=== PATIENT | female | born 1955 | race Caucasian/White ===

== ENCOUNTER 2017-07-01 06:05 | Inpatient (IN) | payer BC, SELFPAY ==
[2017-07-01] VITALS (18 sets, daily range): BP systolic 117–144; BP diastolic 61–103; PULSE 61–76; RESP 10–31; TEMP 36.6–37; O2SAT 93–97; BMI 35.2; BMI 36.2; BMI 36.3
--- NOTE | 2017-07-01 06:09 | EKG12_ITS ---
Test Reason : SOB Blood Pressure : / mmHG Vent. Rate : 073 BPM Atrial Rate : 073 BPM P-R Int : 128 ms QRS Dur : 076 ms QT Int : 384 ms P-R-T Axes : 021 -01 050 degrees QTc Int : 423 ms Sinus rhythm with Premature supraventricular complexes Low voltage QRS Nonspecific ST abnormality Poor R wave progression Abnormal ECG Confirmed by RONALD MÁRQUEZ, CARISSA ([id number]), technical editor ARABELLA MCNALLY ([id number] on 07/02/2017 2:24:57 PM Referred By: PADMINI Confirmed By:CARISSA CARDENAS MD
--- NOTE | 2017-07-01 06:09 | RAD_ITS ---
STUDY: X-RAY CHEST REASON FOR EXAM: Female, 61 years old. Shortness of breath TECHNIQUE: Single AP portable view of the chest. COMPARISON: None. FINDINGS: EKG leads are in place There is pulmonary vascular congestion and interstitial edema There is no demonstrated pleural abnormality. There is moderate cardiomegaly Normal mediastinum and noah. Normal visualized pulmonary arteries. There is atherosclerotic calcification of the aortic arch . Normal visualized thoracic spine. Normal visualized ribs, clavicles, and shoulders. There is no demonstrated abnormality of the visualized soft tissue structures of the upper abdomen. RAD/Chest 1 View (Portable) IMPRESSION: Moderate cardiomegaly with pulmonary vascular congestion and interstitial edema consistent with early CHF Electronically Signed: Sen Reagan MD, FACR at 7:47 EST , Service support ,
--- NOTE | 2017-07-01 06:12 | ED.VISSUMM ---
- ER Visit Summary Date of Service: 07/01/17 Chief Complaint: Shortness of breath History of Present Illness: The patient is a 61 F with gradually worsening shortness of breath over the last several days, worse with exertion and much worse with lying supine. Severe now, hence coming to emergency department. Associated with chest tightness. It is nonpleuritic. No recent leg pain or swelling. No palpitations, nausea, vomiting, cough, fever, or other recent illness. Never had this before. No known history of lung or heart problems. Physical Examination: Blood pressure 144/103, heart rate 76, respirations 31, afebrile. Pulse ox 96% on 2L NC (94% on room air). Mild respiratory distress, speaking in 3-5 word sentences. Appears uncomfortable. Heart is regular without tachycardia. Lungs are diminished especially at the bases where there are a few rhonchi. No pedal edema or calf tenderness. No definite JVD. Test Results: EKG shows sinus rhythm with a PAC, at 73. Normal axis, no acute ischemic abnormalities. Diffuse relatively low voltage. Stat portable chest x-ray on my interpretation shows cephalization and signs of pulmonary congestion. Labs show a nonspecific leukocytosis at 13, renal function and troponin are within normal limits, TSH is normal. Emergency Department Course and Treatment: After initial evaluation, patient treated empirically with a duo nebulizer treatment and a single sublingual nitroglycerin. Neither one helped. Still having chest tightness and is breathing hard, but able to converse. Chest x-ray appears to show ulnar congestion. Her blood pressure is 130/79. Since neither treatment helped, patient was placed on BiPAP. I attempted to obtain an ABG, but pt is refusing it. Therefore,venous pH was obtained, which is 7.43; BNP is still pending. Discussed w/ Dr. Puente, he will evaluate her on PCU. Treatment Plan: Admit Disposition: Admit Impression: Chest pain, unspecified Acute respiratory failure This note was generated with [employer] dictation software. It may contain incorrect words, spelling, and punctuation that were not noted in review of the chart prior to signing ED Disposition - Plan for ED Patient: Disposition: Acute Care Hospital [facility] Chief Complaint: Shortness of Breath Referrals: [facility] Doctor,Out of [Primary Care Provider] -
--- NOTE | 2017-07-01 06:15 | ED.DCSUM_ITS ---
- ER Visit Summary Date of Service: 07/01/17 Chief Complaint: Shortness of breath History of Present Illness: The patient is a 61 F with gradually worsening shortness of breath over the last several days, worse with exertion and much worse with lying supine. Severe now, hence coming to emergency department. Associated with chest tightness. It is nonpleuritic. No recent leg pain or swelling. No palpitations, nausea, vomiting, cough, fever, or other recent illness. Never had this before. No known history of lung or heart problems. Physical Examination: Blood pressure 144/103, heart rate 76, respirations 31, afebrile. Pulse ox 96% on 2L NC (94% on room air). Mild respiratory distress, speaking in 3-5 word sentences. Appears uncomfortable. Heart is regular without tachycardia. Lungs are diminished especially at the bases where there are a few rhonchi. No pedal edema or calf tenderness. No definite JVD. Test Results: EKG shows sinus rhythm with a PAC, at 73. Normal axis, no acute ischemic abnormalities. Diffuse relatively low voltage. Stat portable chest x- ray on my interpretation shows cephalization and signs of pulmonary congestion. Labs show a nonspecific leukocytosis at 13, renal function and troponin are within normal limits, TSH is normal. Emergency Department Course and Treatment: After initial evaluation, patient treated empirically with a duo nebulizer treatment and a single sublingual nitroglycerin. Neither one helped. Still having chest tightness and is breathing hard, but able to converse. Chest x-ray appears to show ulnar congestion. Her blood pressure is 130/79. Since neither treatment helped, patient was placed on BiPAP. I attempted to obtain an ABG, but pt is refusing it. Therefore,venous pH was obtained, which is 7.43; BNP is still pending. Discussed w/ Dr. Puente, he will evaluate her on PCU. Treatment Plan: Admit Disposition: Admit Impression: Chest pain, unspecified Acute respiratory failure This note was generated with [employer] dictation software. It may contain incorrect words, spelling, and punctuation that were not noted in review of the chart prior to signing ED Disposition - Plan for ED Patient: Disposition: Acute Care Hospital [facility] Chief Complaint: Shortness of Breath Referrals: [facility] Doctor,Out of [Primary Care Provider] -
[2017-07-01] MEDS: Ipratropium/Albuterol Sulfate 3 ML AMPUL.NEB INHALATION (06:17)
[2017-07-01 06:23] LABS: Absolute Lymphocyte Count 2.61 X10^3/ul (0.83-4.51); Absolute Neutrophil Count 9.2 X10^3/uL (2.0-7.7); Basophil# 0.06 X10^3/uL; Basophil% 0.5 % (0-1); Eosinophil# 0.41 X10^3/uL; Eosinophils% 3.2 % (0-5); Hematocrit 39.1 % (37-47); Hemoglobin 12.5 g/dl (12.0-15.0); Lymphocyte # 2.61 X10^3/ul (4.0); Lymphocyte % 20.1 % (19-41); Mean Corpuscular Hgb 28.9 pg (27.0-32.0); Mean Corpuscular Volume 90.3 fL (81-99); Mean Platelet Vol. 9.7 fl (6.2-12.0); Monocyte# 0.66 X10^3/uL; Monocyte% 5.1 % (0-10); Neutrophil # 9.24 X10^3/uL (2.7-7.7); Neutrophil % 70.9 % (47-70); POSITIVE COUNT NO; POSITIVE DIFFERENTIAL NO; POSITIVE MORPHOLOGY NO; Platelet Count 282 K/mm3 (150-450); RBC Distribution Width CV 14.2 % (11.6-14.6); RBC Distribution Width SD 46.8 fl (35.1-43.9); Red Blood Count 4.33 M/mm3 (4.2-5.4)
[2017-07-01 06:43] LABS: Anion Gap 7 (5-15); BUN 10 mg/dL (7-18); BUN/Creat Ratio 12.6 RATIO (10-20); Calcium,Total 8.7 mg/dL (8.5-10.1); Chloride 107 mmol/L (98-107); Creatinine, Serum 0.79 mg/dL (0.55-1.02); EST Glomerular Filtration Rate 78 mL/min (>60); Est Glom Filt Rate - Afr Amer 94 mL/min (>60); Estimated Creatinine Clearance 70.88 ml/min; Glucose 107 mg/dL (74-106); Potassium 4.6 mmol/L (3.5-5.1); Sodium Level 140 mmol/L (136-145)
[2017-07-01 07:26] LABS: Blood Gas Specimen Type VEN; Time Given 710; VBG BASE EXCESS 2 mmol/L (-1.0-3.5); VBG Bicarbonate 26 mmol/L (22-26); VBG Oxygen Content 28 mmol/L (23-33); VBG PO2 34 mmHg (25-40); VBG SO2 68 % (50-70); VBG pCO2 39.8 mmHg (41-51); VBG pH 7.43 (7.32-7.42)
[2017-07-01 08:03] LABS: BNP,B-Type NATRIURETIC PEPTIDE 512.6 pg/mL (0-100)
--- NOTE | 2017-07-01 09:09 | ECHOD_ITS ---
Reason For Study: HTN Procedure This was a 2D Doppler, Color Flow transthoracic echocardiogram. Exam performed portable in patient room. Left Ventricle Normal size and thickness. The estimated ejection fraction is 65 %. Stage 2 diastolic dysfunction. No regional wall motion abnormalities noted. Right Ventricle Moderately dilated right ventricle. Normal systolic function. Atria Normal left atrium. Normal right atrium. Normal atrial septum. Mitral Valve Mild diffuse mitral valve thickening. Mild mitral annular calcification extending into the posterior leaflet. Mild-Moderate (1-2+) eccentric mitral valve insufficiency. Tricuspid Valve Normal tricuspid valve. Trivial tricuspid valve insufficiency. Right ventricular systolic pressure estimated to be 28 mmHg. Aortic Valve Normal aortic valve. Trisinus/trileaflet aortic valve. Pulmonic Valve The pulmonic valve is not well visualized. Great Vessels Normal aortic root. Normal arch. Normal inferior vena cava. Inferior vena cava collapse with sniff. Pericardium/Pleural No pericardial effusion. Medication Diluted definity 3ml given slow IV push to enhance endocardial definition. MMode/2D Measurements & Calculations RVDd: 3.3 cm Ao root diam: 3.3 cm LAV(MOD-bp): 61.2 ml LA dimension: 4.0 cm LAV(MOD-bp) Indexed: 28.5 ml/m2 LAV(MOD-sp2): 70.2 ml LAV(MOD-sp4): 50.6 ml LA A4 area: 18.1 cm2 RA A4 area: 15.4 cm2 Doppler Measurements & Calculations MV E max bulmaro: 104.6 cm/sec Lat Peak E' Bulmaro: 12.6 cm/sec Med Peak E' Bulmaro: 8.2 cm/sec MV A max bulmaro: 40.5 cm/sec E/E' lat: 8.3 E/E' med: 12.8 MV E/A: 2.6 Ao V2 max: 141.3 cm/sec LV V1 max: 112.9 cm/sec PA V2 max: 78.1 cm/sec Ao max P.0 mmHg LV V1 max P.1 mmHg TR max bulmaro: 236.9 cm/sec TR max P.7 mmHg Interpretation Summary The estimated ejection fraction is 65 %. Stage 2 diastolic dysfunction. Moderately dilated right ventricle. Mild-Moderate (1-2+) eccentric mitral valve insufficiency. MR may be underestimated due to poor echo windows. Right ventricular systolic pressure estimated to be 28 mmHg. The study was technically difficult. There is no comparison study available. Contrast injection was performed. Ordering Physician: Mackenzie Puente Referring Physician: OTD Performed By: Anaid Gutierrez, JALYN, RVT
--- NOTE | 2017-07-01 09:15 | PCM.HP.STD ---
Problem List (1) Obstructive sleep apnea Status: Chronic (2) Depression Status: Chronic (3) Hypertension Status: Chronic History of Present Illness Date of Admission: 07/01/17 Chief Complaint: Shortness of breath. The patient is a 61 year old F with past medical history as mentioned above presented to the emergency room because of shortness of breath. Her symptoms started in the last 2-3 days with shortness of breath at rest, constant, associated with orthopnea and chest pressure, aggravated by activity and minimally relieved with rest. Complaint of chest pain, described as pressure-like pain, squeezing type, not radiating, started 1 day after the shortness of breath. She denied sharp anterior chest pain. She denied associated cough or sputum production. Denied fever or chills. In the emergency room, patient was dyspneic and tachypneic. She was afebrile, blood pressure 100 stable, pulse ox was 97% on 2 L. Her routine blood work was remarkable for leukocytosis, otherwise normal. First troponin is negative. BNP was elevated at 512. TSH was normal. Venous blood gas revealed pH of 7.43, PCO2 of 39 and PO2 of 68. EKG revealed normal sinus rhythm with occasional PVCs, low voltage QRS and no acute ischemic changes. Chest x-ray showed bilateral basilar pulmonary vascular congestion consistent with CHF. She is being admitted for shortness of breath with hypoxia with high suspicion of acute just of heart failure for evaluation. Past Medical History Past Medical History (Chronic Problems): Chronic Problems Obstructive sleep apnea (Chronic) Depression (Chronic) Hypertension (Chronic) Allergies aspirin [From Percodan] Allergy (Verified 07/01/17 06:12) Anaphylaxis codeine Allergy (Verified 07/01/17 06:12) Other HEADACHE oxycodone [From Percodan] Allergy (Verified 07/01/17 06:12) Anaphylaxis Home Medications: Ambulatory Orders Medication Instructions Recorded Atenolol [Tenormin (beta Iris)] 25 mg PO DAILY 07/01/17 Bupropion HCl [Wellbutrin Xl] 150 mg PO DAILY 07/01/17 Hydrochlorothiazide [Hctz] 10 mg PO DAILY 07/01/17 Venlafaxine HCl [Effexor] 75 mg PO BID 07/01/17 Surgical History: cholecystectomy, - - Tubal ligation, shoulder repair. Psychiatric History: No pertinent psych hx [employer] History: No pertinent [employer] history Lives: Spouse/ Significant Other Smoking Status: Current every day smoker Alcohol: None Drugs: None - *Family History Maternal History Items: No pertinent history Paternal History Items: No pertinent history Review of Systems Constitutional: Denies: Anorexia, Chills, Fever, Weakness Eyes: Denies: Blurred vision, Double vision, Drainage, Redness HEENT: Denies: Difficulty Hearing, Ear Pain, Eye Pain, Nasal Congestion, Sore Throat Cardiovascular: Reports: Chest Pressure, Chest Tightness, Heaviness, Orthopnea. Denies: Chest Pain, Edema, Light Headedness, Palpitations, Paroxysmal Noc. Dyspnea, Syncope Respiratory: Reports: Shortness of Breath, Shortness of breath at rest, Shortness of breath upon exertion. Denies: Cough, Pleuritic Pain, Sputum production, Wheezing Gastrointestinal: Denies: Abdominal Pain, Constipation, Diarrhea, Nausea, Vomiting Genitourinary: Denies: Dysuria, Frequency, Hematuria Musculoskeletal: Denies: Arm Pain, Back Pain, Foot Pain Skin: Denies: Dryness, Rash Neurological: Denies: Balance problems, Double vision, Change in Speech, Slurred speech, Confusion, Focal weakness, Incoordination, Numbness Psychiatric: Reports: Depression. Denies: Anxiety Endocrine: Denies: Change in Body Habitus, Polydipsia VTE Information - Inpt Only VTE Present on Admission: No VTE Mechan Device Prophylaxis: None VTE Pharm Prophylaxis ordered?: Yes Patient Problems: Active and Suspected Problems Shortness of breath (Acute) Chest pain (Acute) Pulmonary edema (Acute) - Physical Exam General: Alert, Oriented x3, Cooperative, - - Moderately short of breath. HEENT: Atraumatic, PERRLA, EOMI Oral: Moist Mucosa, No Gingival or Mucosal Lesions/ Ulcerations Neck: Supple, No JVD, Negative Carotid Bruits, Trachea Midline, Thyroid Normal Size and Texture Lungs: No rhonchi, No wheeze, Diminished, Rales, Short of Breath, - - Decreased breath sounds bilateral, bilateral basal crackles. Cardiovascular: Regular rate, Regular Rhythm, Normal S1, Normal S2, No murmurs, PMI Normal Abdomen: Bowel Sounds Present, Soft, Non Tender, Non-Distended, No Hepato-splenomegaly Extremities: No clubbing, No cyanosis, No edema Skin: No rashes, No breakdown Lymphatic: No Cervical, Supraclavicular, or Inguinal Adenopathy Neurological: Cranial nerves II-XII grossly intact, Motor Exam 5/5 strength throughout Psych/Mental Status: Normal Affect, Appropriate, Alert and oriented to time, place, person, mood and affect Vital Signs Temp Pulse Resp BP Pulse Ox 98.4 F 64 18 122/78 H 97 07/01/17 08:30 07/01/17 08:42 07/01/17 08:30 07/01/17 08:45 07/01/17 08:30 Oxygen Flow Rate 2 Oxygen Delivery Method Nasal Cannula Weight: 231 lb 7.766 oz Body Mass Index (BMI) 36.2 Laboratory Tests Past 24 Hrs 07/01/17 07:21 Specimen Type COURTNEY VBG pH 7.43 H VBG pO2 34 VBG O2 Sat (Calc) 68 VBG O2 Content 28 VBG Base Excess 2 POC Mix VBG pCO2 Pt Tmp 39.8 L Blood Gas Notified Whom ED Blood Gas Notified Time 710 Laboratory Tests 07/01/17 07/01/17 07/01/17 Range/Units 07:21 06:10 06:10 WBC (4.4-11.0) K/mm3 RBC (4.2-5.4) M/mm3 Hgb (12.0-15.0) g/dl Hct (37-47) % MCV (81-99) fL MCH (27.0-32.0) pg MCHC (32-36) g/gl RDW (11.6-14.6) % RDW Differential (35.1-43.9) fl Plt Count (150-450) K/mm3 MPV (6.2-12.0) fl Immature Gran % (Auto) (0.0-0.9) % Neut % (Auto) (47-70) % Lymph % (Auto) (19-41) % [place] % (Auto) (0-10) % Eos % (Auto) (0-5) % Baso % (Auto) (0-1) % Absolute Neuts (auto) (2.0-7.7) X10^3/uL Absolute Lymphs (auto) (0.83-4.51) X10^3/ul Total Counted Specimen Type COURTNEY VBG pH 7.43 H (7.32-7.42) VBG pO2 34 (25-40) mmHg VBG O2 Sat (Calc) 68 (50-70) % VBG O2 Content 28 (23-33) mmol/L VBG Base Excess 2 (-1.0-3.5) mmol/L POC Mix VBG pCO2 Pt Tmp 39.8 L (41-51) mmHg Blood Gas Notified Whom ED MD Blood Gas Notified Time 710 Sodium 140 (136-145) mmol/L Potassium 4.6 (3.5-5.1) mmol/L Chloride 107 (98-107) mmol/L Carbon Dioxide 26.0 (21.0-32.0) mmol/L Anion Gap 7 (5-15) BUN 10 (7-18) mg/dL Creatinine 0.79 (0.55-1.02) mg/dL Estim Creat Clear Calc 70.88 ml/min Est GFR (MDRD) Af Amer 94 (>60) mL/min Est GFR (MDRD) Non-Af 78 (>60) mL/min BUN/Creatinine Ratio 12.6 (10-20) RATIO Glucose 107 H (74-106) mg/dL Calcium 8.7 (8.5-10.1) mg/dL Troponin I < 0.02 (<0.06) ng/mL B-Natriuretic Peptide 512.6 H (0-100) pg/mL TSH 3.20 (0.358-3.74) uIU/mL 07/01/17 Range/Units 06:10 WBC 13.0 H (4.4-11.0) K/mm3 RBC 4.33 (4.2-5.4) M/mm3 Hgb 12.5 (12.0-15.0) g/dl Hct 39.1 (37-47) % MCV 90.3 (81-99) fL MCH 28.9 (27.0-32.0) pg MCHC 32.0 (32-36) g/gl RDW 14.2 (11.6-14.6) % RDW Differential 46.8 H (35.1-43.9) fl Plt Count 282 (150-450) K/mm3 MPV 9.7 (6.2-12.0) fl Immature Gran % (Auto) 0.200 (0.0-0.9) % Neut % (Auto) 70.9 H (47-70) % Lymph % (Auto) 20.1 (19-41) % [place] % (Auto) 5.1 (0-10) % Eos % (Auto) 3.2 (0-5) % Baso % (Auto) 0.5 (0-1) % Absolute Neuts (auto) 9.2 H (2.0-7.7) X10^3/uL Absolute Lymphs (auto) 2.61 (0.83-4.51) X10^3/ul Total Counted Not Reportable Specimen Type VBG pH (7.32-7.42) VBG pO2 (25-40) mmHg VBG O2 Sat (Calc) (50-70) % VBG O2 Content (23-33) mmol/L VBG Base Excess (-1.0-3.5) mmol/L POC Mix VBG pCO2 Pt Tmp (41-51) mmHg Blood Gas Notified Whom Blood Gas Notified Time Sodium (136-145) mmol/L Potassium (3.5-5.1) mmol/L Chloride (98-107) mmol/L Carbon Dioxide (21.0-32.0) mmol/L Anion Gap (5-15) BUN (7-18) mg/dL Creatinine (0.55-1.02) mg/dL Estim Creat Clear Calc ml/min Est GFR (MDRD) Af Amer (>60) mL/min Est GFR (MDRD) Non-Af (>60) mL/min BUN/Creatinine Ratio (10-20) RATIO Glucose (74-106) mg/dL Calcium (8.5-10.1) mg/dL Troponin I (<0.06) ng/mL B-Natriuretic Peptide (0-100) pg/mL TSH (0.358-3.74) uIU/mL Clinical Impression(s) from Imaging Studies Chest X-Ray 07/01/17 06:09 IMPRESSION: Moderate cardiomegaly with pulmonary vascular congestion and interstitial edema consistent with early CHF Electronically Signed: Sen Reagan MD, FACR at 7:47 EST , Service support , Assessment/Plan Active and Suspected Problems Shortness of breath (Acute) Chest pain (Acute) Pulmonary edema (Acute) This is a 61 years old female patient presented to the emergency room because of shortness of breath and orthopnea, found to have acute onset congestive heart failure as well as hypoxia. #1 acute new onset congestive heart failure: Based on symptoms, chest x-ray findings, elevated BNP. Patient never had a history of cardiac disease. Differential diagnoses include possible viral myocarditis coronary artery disease. She is a big time smoker, strong family history of CAD. EKG revealed normal sinus rhythm with PVCs, low voltage QRS, no acute ischemic changes. First troponin is negative. BNP is elevated. Plan: Admit to PCU, cardiac monitoring, serial cardiac enzymes, repeat EKG tomorrow morning, 2D echocardiogram, fluid restriction to less than 1500 cc daily, IV Lasix for diuresis, start JEREMIAH inhibitors, cardiology consult, repeat CBC and BMP tomorrow morning, oxygen by nasal cannula to keep O2 saturation more than 92%, incentive spirometer, PT OT evaluation and treatment. May need diagnostic cardiac catheterization to rule out ischemic cardiomyopathy. #2 shortness of breath/hypoxia: Secondary to above. Also, she is a chronic smoker and underlying COPD cannot be ruled out. Plan: Albuterol as needed, IV Lasix for diuresis, incentive spirometer. Patient will probably need lung function test as outpatient. #3 hypertension: Pressure stable, will start lisinopril, hold beta blockers will because of acute CHF. #4 obstructive sleep apnea: CPAP at home, that will be continued, 2D echocardiogram as above. #5 depression: Continue Effexor and Wellbutrin. #6 suspected COPD: Patient is chronic smoker, more than 30 years of smoking. Never had a lung function test and never been diagnosed with COPD officially. Plan: Albuterol as needed as above, oxygen by nasal cannula. #7 DVT prophylaxis: Subcu Lovenox. This note was generated with [employer] dictation software. It may contain incorrect words, spelling, and punctuation that were not noted in checking the note before signing. Code Visit Inpatient E&M: 30377 Init Hosp L3
--- NOTE | 2017-07-01 09:21 | HP.PCM_ITS ---
Problem List (1) Obstructive sleep apnea Status: Chronic (2) Depression Status: Chronic (3) Hypertension Status: Chronic History of Present Illness Date of Admission: 07/01/17 Chief Complaint: Shortness of breath. The patient is a 61 year old F with past medical history as mentioned above presented to the emergency room because of shortness of breath. Her symptoms started in the last 2-3 days with shortness of breath at rest, constant, associated with orthopnea and chest pressure, aggravated by activity and minimally relieved with rest. Complaint of chest pain, described as pressure- like pain, squeezing type, not radiating, started 1 day after the shortness of breath. She denied sharp anterior chest pain. She denied associated cough or sputum production. Denied fever or chills. In the emergency room, patient was dyspneic and tachypneic. She was afebrile, blood pressure 100 stable, pulse ox was 97% on 2 L. Her routine blood work was remarkable for leukocytosis, otherwise normal. First troponin is negative. BNP was elevated at 512. TSH was normal. Venous blood gas revealed pH of 7.43, PCO2 of 39 and PO2 of 68. EKG revealed normal sinus rhythm with occasional PVCs, low voltage QRS and no acute ischemic changes. Chest x-ray showed bilateral basilar pulmonary vascular congestion consistent with CHF. She is being admitted for shortness of breath with hypoxia with high suspicion of acute just of heart failure for evaluation. Past Medical History Past Medical History (Chronic Problems): Chronic Problems Obstructive sleep apnea (Chronic) Depression (Chronic) Hypertension (Chronic) Allergies aspirin [From Percodan] Allergy (Verified 07/01/17 06:12) Anaphylaxis codeine Allergy (Verified 07/01/17 06:12) Other HEADACHE oxycodone [From Percodan] Allergy (Verified 07/01/17 06:12) Anaphylaxis Home Medications: Ambulatory Orders Medication Instructions Recorded Atenolol [Tenormin (beta Iris)] 25 mg PO DAILY 07/01/17 Bupropion HCl [Wellbutrin Xl] 150 mg PO DAILY 07/01/17 Hydrochlorothiazide [Hctz] 10 mg PO DAILY 07/01/17 Venlafaxine HCl [Effexor] 75 mg PO BID 07/01/17 Surgical History: cholecystectomy, - - Tubal ligation, shoulder repair. 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 Denies: Chest Pain, Edema, Light Headedness, Palpitations, Paroxysmal Noc. Dyspnea, Syncope Respiratory: Reports: Shortness of Breath, Shortness of breath at rest, Shortness of breath upon exertion. Denies: Cough, Pleuritic Pain, Sputum production, Wheezing Gastrointestinal: Denies: Abdominal Pain, Constipation, Diarrhea, Nausea, Vomiting Genitourinary: Denies: Dysuria, Frequency, Hematuria Musculoskeletal: Denies: Arm Pain, Back Pain, Foot Pain Skin: Denies: Dryness, Rash Neurological: Denies: Balance problems, Double vision, Change in Speech, Slurred speech, Confusion, Focal weakness, Incoordination, Numbness Psychiatric: Reports: Depression. Denies: Anxiety Endocrine: Denies: Change in Body Habitus, Polydipsia VTE Information - Inpt Only VTE Present on Admission: No VTE Mechan Device Prophylaxis: None VTE Pharm Prophylaxis ordered?: Yes Patient Problems: Active and Suspected Problems Shortness of breath (Acute) Chest pain (Acute) Pulmonary edema (Acute) - Physical Exam General: Alert, Oriented x3, Cooperative, - - Moderately short of breath. HEENT: Atraumatic, PERRLA, EOMI Oral: Moist Mucosa, No Gingival or Mucosal Lesions/ Ulcerations Neck: Supple, No JVD, Negative Carotid Bruits, Trachea Midline, Thyroid Normal Size and Texture Lungs: No rhonchi, No wheeze, Diminished, Rales, Short of Breath, - - Decreased breath sounds bilateral, bilateral basal crackles. Cardiovascular: Regular rate, Regular Rhythm, Normal S1, Normal S2, No murmurs, PMI Normal Abdomen: Bowel Sounds Present, Soft, Non Tender, Non-Distended, No Hepato- splenomegaly Extremities: No clubbing, No cyanosis, No edema Skin: No rashes, No breakdown Lymphatic: No Cervical, Supraclavicular, or Inguinal Adenopathy Neurological: Cranial nerves II-XII grossly intact, Motor Exam 5/5 strength throughout Psych/Mental Status: Normal Affect, Appropriate, Alert and oriented to time, place, person, mood and affect Vital Signs Temp Pulse Resp BP Pulse Ox 98.4 F 64 18 122/78 H 97 07/01/17 08:30 07/01/17 08:42 07/01/17 08:30 07/01/17 08:45 07/01/17 08:30 Oxygen Flow Rate 2 Oxygen Delivery Method Nasal Cannula Weight: 231 lb 7.766 oz Body Mass Index (BMI) 36.2 Laboratory Tests Past 24 Hrs 07/01/17 07:21 Specimen Type COURTNEY VBG pH 7.43 H VBG pO2 34 VBG O2 Sat (Calc) 68 VBG O2 Content 28 VBG Base Excess 2 POC Mix VBG pCO2 Pt Tmp 39.8 L Blood Gas Notified Whom ED Blood Gas Notified Time 710 Laboratory Tests 3 07/01/17 07/01/17 07/01/17 Range/Units 07:21 06:10 06:10 WBC (4.4-11.0) K/mm3 RBC (4.2-5.4) M/mm3 Hgb (12.0-15.0) g/dl Hct (37-47) % MCV (81-99) fL MCH (27.0-32.0) pg MCHC (32-36) g/gl RDW (11.6-14.6) % RDW Differential (35.1-43.9) fl Plt Count (150-450) K/mm3 MPV (6.2-12.0) fl Immature Gran % (Auto) (0.0-0.9) % Neut % (Auto) (47-70) % Lymph % (Auto) (19-41) % Nance % (Auto) (0-10) % Eos % (Auto) (0-5) % Baso % (Auto) (0-1) % Absolute Neuts (auto) (2.0-7.7) X10^3/uL Absolute Lymphs (auto) (0.83-4.51) X10^3/ul Total Counted Specimen Type COURTNEY VBG pH 7.43 H (7.32-7.42) VBG pO2 34 (25-40) mmHg VBG O2 Sat (Calc) 68 (50-70) % VBG O2 Content 28 (23-33) mmol/L VBG Base Excess 2 (-1.0-3.5) mmol/L POC Mix VBG pCO2 Pt Tmp 39.8 L (41-51) mmHg Blood Gas Notified Whom ED MD Blood Gas Notified Time 710 Sodium 140 (136-145) mmol/L Potassium 4.6 (3.5-5.1) mmol/L Chloride 107 (98-107) mmol/L Carbon Dioxide 26.0 (21.0-32.0) mmol/L Anion Gap 7 (5-15) BUN 10 (7-18) mg/dL Creatinine 0.79 (0.55-1.02) mg/dL Estim Creat Clear Calc 70.88 ml/min Est GFR (MDRD) Af Amer 94 (>60) mL/min Est GFR (MDRD) Non-Af 78 (>60) mL/min BUN/Creatinine Ratio 12.6 (10-20) RATIO Glucose 107 H (74-106) mg/dL Calcium 8.7 (8.5-10.1) mg/dL Troponin I < 0.02 (<0.06) ng/mL B-Natriuretic Peptide 512.6 H (0-100) pg/mL TSH 3.20 (0.358-3.74) uIU/mL 3 07/01/17 Range/Units 06:10 WBC 13.0 H (4.4-11.0) K/mm3 RBC 4.33 (4.2-5.4) M/mm3 Hgb 12.5 (12.0-15.0) g/dl Hct 39.1 (37-47) % MCV 90.3 (81-99) fL MCH 28.9 (27.0-32.0) pg MCHC 32.0 (32-36) g/gl RDW 14.2 (11.6-14.6) % RDW Differential 46.8 H (35.1-43.9) fl Plt Count 282 (150-450) K/mm3 MPV 9.7 (6.2-12.0) fl Immature Gran % (Auto) 0.200 (0.0-0.9) % Neut % (Auto) 70.9 H (47-70) % Lymph % (Auto) 20.1 (19-41) % Nance % (Auto) 5.1 (0-10) % Eos % (Auto) 3.2 (0-5) % Baso % (Auto) 0.5 (0-1) % Absolute Neuts (auto) 9.2 H (2.0-7.7) X10^3/uL Absolute Lymphs (auto) 2.61 (0.83-4.51) X10^3/ul Total Counted Not Reportable Specimen Type VBG pH (7.32-7.42) VBG pO2 (25-40) mmHg VBG O2 Sat (Calc) (50-70) % VBG O2 Content (23-33) mmol/L VBG Base Excess (-1.0-3.5) mmol/L POC Mix VBG pCO2 Pt Tmp (41-51) mmHg Blood Gas Notified Whom Blood Gas Notified Time Sodium (136-145) mmol/L Potassium (3.5-5.1) mmol/L Chloride (98-107) mmol/L Carbon Dioxide (21.0-32.0) mmol/L Anion Gap (5-15) BUN (7-18) mg/dL Creatinine (0.55-1.02) mg/dL Estim Creat Clear Calc ml/min Est GFR (MDRD) Af Amer (>60) mL/min Est GFR (MDRD) Non-Af (>60) mL/min BUN/Creatinine Ratio (10-20) RATIO Glucose (74-106) mg/dL Calcium (8.5-10.1) mg/dL Troponin I (<0.06) ng/mL B-Natriuretic Peptide (0-100) pg/mL TSH (0.358-3.74) uIU/mL Clinical Impression(s) from Imaging Studies Chest X-Ray 07/01/17 06:09 IMPRESSION: Moderate cardiomegaly with pulmonary vascular congestion and interstitial edema consistent with early CHF Electronically Signed: Sen Reagan MD, FACR at 7:47 EST , Service support , Assessment/Plan Active and Suspected Problems Shortness of breath (Acute) Chest pain (Acute) Pulmonary edema (Acute) This is a 61 years old female patient presented to the emergency room because of shortness of breath and orthopnea, found to have acute onset congestive heart failure as well as hypoxia. #1 acute new onset congestive heart failure: Based on symptoms, chest x-ray findings, elevated BNP. Patient never had a history of cardiac disease. Differential diagnoses include possible viral myocarditis coronary artery disease. She is a big time smoker, strong family history of CAD. EKG revealed normal sinus rhythm with PVCs, low voltage QRS, no acute ischemic changes. First troponin is negative. BNP is elevated. Plan: Admit to PCU, cardiac monitoring, serial cardiac enzymes, repeat EKG tomorrow morning, 2D echocardiogram, fluid restriction to less than 1500 cc daily, IV Lasix for diuresis, start JEREMIAH inhibitors, cardiology consult, repeat CBC and BMP tomorrow morning, oxygen by nasal cannula to keep O2 saturation more than 92%, incentive spirometer, PT OT evaluation and treatment. May need diagnostic cardiac catheterization to rule out ischemic cardiomyopathy. #2 shortness of breath/hypoxia: Secondary to above. Also, she is a chronic smoker and underlying COPD cannot be ruled out. Plan: Albuterol as needed, IV Lasix for diuresis, incentive spirometer. Patient will probably need lung function test as outpatient. #3 hypertension: Pressure stable, will start lisinopril, hold beta blockers will because of acute CHF. #4 obstructive sleep apnea: CPAP at home, that will be continued, 2D echocardiogram as above. #5 depression: Continue Effexor and Wellbutrin. #6 suspected COPD: Patient is chronic smoker, more than 30 years of smoking. Never had a lung function test and never been diagnosed with COPD officially. Plan: Albuterol as needed as above, oxygen by nasal cannula. #7 DVT prophylaxis: Subcu Lovenox. This note was generated with [employer] dictation software. It may contain incorrect words, spelling, and punctuation that were not noted in checking the note before signing. Code Visit Inpatient E&M: 40162 Init Hosp L3
[2017-07-01 09:54] LABS: International Normalized Ratio 1.1; Prothrombin Time (Protime)PT. 13.4 SECONDS (11.7-14.9)
--- NOTE | 2017-07-01 10:13 | PCM.CONS.C ---
Problem List (1) Shortness of breath Status: Acute (2) Chest pain Status: Acute (3) Pulmonary edema Status: Acute (4) Hypertension Status: Chronic Reason for Consult Date of Consultation: 07/01/17 Reason for Consultation: Dyspnea on exertion, pulmonary edema, shortness of breath, chest pain. History of Present Illness: The patient is a 61 year old F, moderately obese, nondiabetic, current smoker of approximately 30 pack years, with a history of hypertension, obstructive sleep apnea, and positive family history of coronary disease. Her mother had bypass surgery in her 50s, and her father had bypass surgery in his late 70s. She herself has never had any documented coronary disease. The patient was doing well up until the last 2-3 days when she suddenly developed shortness of breath and dyspnea on exertion as well as substernal chest pressure over the last week with exertion. Chest pressure was described as a heaviness in the middle of her chest which was nonradiating and associated with dyspnea on exertion and shortness of breath. Patient is also complained of abdominal bloating for the past 1 month. She is recently traveled from [place] proximally 1 week ago but she was fine for several days after her arrival here in [place]. Patient a stress test many years ago, but never had a catheterization. She reports that her shortness of breath is worse with laying down, and improves with sitting forward. She denies any lower extremity edema, fevers, chills, recent upper respiratory tract infection. Her initial EKG showed normal sinus rhythm with low voltage, poor R-wave progression across the precordium which may be secondary to lead misplacement, no acute changes, no previous myocardial infarction documented. Chest x-ray demonstrated bilateral pulmonary edema, no pleural effusions noted. Initial troponin negative. Telemetry been negative overnight. [] Past Medical History Allergies/Adverse Reactions: Allergies aspirin [From Percodan] Allergy (Verified 07/01/17 06:12) Anaphylaxis codeine Allergy (Verified 07/01/17 06:12) Other HEADACHE oxycodone [From Percodan] Allergy (Verified 07/01/17 06:12) Anaphylaxis Home Medications: Ambulatory Orders Medication Instructions Recorded Atenolol [Tenormin (beta Iris)] 25 mg PO DAILY 07/01/17 Bupropion HCl [Wellbutrin Xl] 150 mg PO DAILY 07/01/17 Hydrochlorothiazide [Hctz] 10 mg PO DAILY 07/01/17 Venlafaxine HCl [Effexor] 75 mg PO BID 07/01/17 Past Medical History (Chronic Problems): Chronic Problems Obstructive sleep apnea (Chronic) Depression (Chronic) Hypertension (Chronic) Surgical History: cholecystectomy, - - Tubal ligation, shoulder repair. 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 Denies: Shortness of Breath, Orthopnea, PND, Peripheral Edema, Palpitations, Lightheadedness, Dizziness, Near Syncope, Syncope Respiratory: Denies: Cough, Sputum Production, Hemoptysis Gastrointestinal: Denies: Hematemesis, Hematochezia, Melena Genitourinary: Denies: Dysuria, Hematuria Skin: Denies: Rash Subjectve: Patient laying in bed, no acute distress. Objective: Vital Signs Temp Pulse Resp BP Pulse Ox 98.4 F 64 18 122/78 H 97 07/01/17 08:30 07/01/17 08:42 07/01/17 08:30 07/01/17 08:45 07/01/17 08:30 Oxygen Flow Rate 2 Oxygen Delivery Method Nasal Cannula Weight: 231 lb 7.766 oz Body Mass Index (BMI) 36.2 General: Awake, Alert, Oriented x 3 HEENT: PERRL, EOMI, Sclera Non Icteric Neck: Supple, Good ROM, No Lymph Node Enlargement Lungs: Rales - Cesar Bases Cardiovascular: Regular Rhythm, Normal S1, Normal S2, No Murmurs, No Rubs, No Gallops Vascular: No Carotid Bruits, Normal Femoral Pulses, Normal Radial Pulses, Normal Dorsalis Pedal Pulse, Normal Posterior Tibial Pulses Abdomen: Bowel Sounds Present, Soft, Non Tender, No HSM, No Organomegaly Extremities: No Cyanosis, No Clubbing, No edema Neurological: No Focal Motor or Sensory Deficit 07/01/17 07:21: VBG pH 7.43 H, VBG pO2 34, VBG O2 Sat (Calc) 68, VBG O2 Content 28, VBG Base Excess 2 Rhythm: EKG: As above ECHO: Pending Stress Test: Cardiac Cath: PCI: CT Surgery: Holter monitor: EPS: PPM: CXR: Chest CT Scan: Assessment/Plan 1. Dyspnea on exertion: The patient has signs and symptoms of new onset congestive heart failure, as well as exertional anginal symptoms which may be a byproduct of her smoking as well as possible undiagnosed coronary artery disease. Her initial EKG was negative for dynamic changes and suggest possible old anterior wall myocardial infarction versus lead misplacement. Her chest x-ray suggests bilateral pulmonary edema, and she also complains of abdominal bloating over the last month. She denies any recent upper respiratory tract infections that may suggest a viral cardiomyopathy. I recommended the patient undergo a 2D echo with Doppler which is already been ordered. Depending upon the results of that will determine our next step. If she has evidence of LV dysfunction and pulmonary hypertension, she may require a diagnostic coronary angiogram. In the meantime she will continue baby aspirin, IV Lasix 40 mg twice daily to achieve a negative diuresis of approximately 1 L per day. Would recommend holding beta iris at this time given her acute onset heart failure, until we have achieved her dry weight. I am in agreement with JEREMIAH inhibitor therapy at this time for afterload reduction. Once the patient is able to lay down flat, we can proceed with diagnostic coronary angiogram perhaps tomorrow morning. Recommend continuing rule out protocol for troponins. Patient most likely require diagnostic coronary angiogram rather than a stress test given her presentation. 2. Hyperlipidemia: Recommend obtaining a fasting lipid profile. 3. Tobacco cessation: I strongly encouraged the patient discontinue all tobacco products, and she may require outpatient pulmonary function test to assess whether she has COPD. 4. Thank you very much for the opportunity to participate in the cardiac care of your patient. Code Visit Inpatient E&M: 73305 Init Hosp L2
--- NOTE | 2017-07-01 10:22 | CON.PCM_ITS ---
Problem List (1) Shortness of breath Status: Acute (2) Chest pain Status: Acute (3) Pulmonary edema Status: Acute (4) Hypertension Status: Chronic Reason for Consult Date of Consultation: 07/01/17 Reason for Consultation: Dyspnea on exertion, pulmonary edema, shortness of breath, chest pain. History of Present Illness: The patient is a 61 year old F, moderately obese, nondiabetic, current smoker of approximately 30 pack years, with a history of hypertension, obstructive sleep apnea, and positive family history of coronary disease. Her mother had bypass surgery in her 50s, and her father had bypass surgery in his late 70s. She herself has never had any documented coronary disease. The patient was doing well up until the last 2-3 days when she suddenly developed shortness of breath and dyspnea on exertion as well as substernal chest pressure over the last week with exertion. Chest pressure was described as a heaviness in the middle of her chest which was nonradiating and associated with dyspnea on exertion and shortness of breath. Patient is also complained of abdominal bloating for the past 1 month. She is recently traveled from [place] proximally 1 week ago but she was fine for several days after her arrival here in [place]. Patient a stress test many years ago, but never had a catheterization. She reports that her shortness of breath is worse with laying down, and improves with sitting forward. She denies any lower extremity edema, fevers, chills, recent upper respiratory tract infection. Her initial EKG showed normal sinus rhythm with low voltage, poor R-wave progression across the precordium which may be secondary to lead misplacement, no acute changes, no previous myocardial infarction documented. Chest x-ray demonstrated bilateral pulmonary edema, no pleural effusions noted. Initial troponin negative. Telemetry been negative overnight. [] Past Medical History Allergies/Adverse Reactions: Allergies aspirin [From Percodan] Allergy (Verified 07/01/17 06:12) Anaphylaxis codeine Allergy (Verified 07/01/17 06:12) Other HEADACHE oxycodone [From Percodan] Allergy (Verified 07/01/17 06:12) Anaphylaxis Home Medications: Ambulatory Orders Medication Instructions Recorded Atenolol [Tenormin (beta Iris)] 25 mg PO DAILY 07/01/17 Bupropion HCl [Wellbutrin Xl] 150 mg PO DAILY 07/01/17 Hydrochlorothiazide [Hctz] 10 mg PO DAILY 07/01/17 Venlafaxine HCl [Effexor] 75 mg PO BID 07/01/17 Past Medical History (Chronic Problems): Chronic Problems Obstructive sleep apnea (Chronic) Depression (Chronic) Hypertension (Chronic) Surgical History: cholecystectomy, - - Tubal ligation, shoulder repair. 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 Denies: Shortness of Breath, Orthopnea, PND, Peripheral Edema, Palpitations, Lightheadedness, Dizziness, Near Syncope, Syncope Respiratory: Denies: Cough, Sputum Production, Hemoptysis Gastrointestinal: Denies: Hematemesis, Hematochezia, Melena Genitourinary: Denies: Dysuria, Hematuria Skin: Denies: Rash Subjectve: Patient laying in bed, no acute distress. Objective: Vital Signs Temp Pulse Resp BP Pulse Ox 98.4 F 64 18 122/78 H 97 07/01/17 08:30 07/01/17 08:42 07/01/17 08:30 07/01/17 08:45 07/01/17 08:30 Oxygen Flow Rate 2 Oxygen Delivery Method Nasal Cannula Weight: 231 lb 7.766 oz Body Mass Index (BMI) 36.2 General: Awake, Alert, Oriented x 3 HEENT: PERRL, EOMI, Sclera Non Icteric Neck: Supple, Good ROM, No Lymph Node Enlargement Lungs: Rales - Cesar Bases Cardiovascular: Regular Rhythm, Normal S1, Normal S2, No Murmurs, No Rubs, No Gallops Vascular: No Carotid Bruits, Normal Femoral Pulses, Normal Radial Pulses, Normal Dorsalis Pedal Pulse, Normal Posterior Tibial Pulses Abdomen: Bowel Sounds Present, Soft, Non Tender, No HSM, No Organomegaly Extremities: No Cyanosis, No Clubbing, No edema Neurological: No Focal Motor or Sensory Deficit 07/01/17 07:21: VBG pH 7.43 H, VBG pO2 34, VBG O2 Sat (Calc) 68, VBG O2 Content 28, VBG Base Excess 2 Rhythm: EKG: As above ECHO: Pending Stress Test: Cardiac Cath: PCI: CT Surgery: Holter monitor: EPS: PPM: CXR: Chest CT Scan: Assessment/Plan 1. Dyspnea on exertion: The patient has signs and symptoms of new onset congestive heart failure, as well as exertional anginal symptoms which may be a byproduct of her smoking as well as possible undiagnosed coronary artery disease. Her initial EKG was negative for dynamic changes and suggest possible old anterior wall myocardial infarction versus lead misplacement. Her chest x- ray suggests bilateral pulmonary edema, and she also complains of abdominal bloating over the last month. She denies any recent upper respiratory tract infections that may suggest a viral cardiomyopathy. I recommended the patient undergo a 2D echo with Doppler which is already been ordered. Depending upon the results of that will determine our next step. If she has evidence of LV dysfunction and pulmonary hypertension, she may require a diagnostic coronary angiogram. In the meantime she will continue baby aspirin, IV Lasix 40 mg twice daily to achieve a negative diuresis of approximately 1 L per day. Would recommend holding beta iris at this time given her acute onset heart failure, until we have achieved her dry weight. I am in agreement with JEREMIAH inhibitor therapy at this time for afterload reduction. Once the patient is able to lay down flat, we can proceed with diagnostic coronary angiogram perhaps tomorrow morning. Recommend continuing rule out protocol for troponins. Patient most likely require diagnostic coronary angiogram rather than a stress test given her presentation. 2. Hyperlipidemia: Recommend obtaining a fasting lipid profile. 3. Tobacco cessation: I strongly encouraged the patient discontinue all tobacco products, and she may require outpatient pulmonary function test to assess whether she has COPD. 4. Thank you very much for the opportunity to participate in the cardiac care of your patient. Code Visit Inpatient E&M: 20333 Init Hosp L2
[2017-07-01] MEDS: Furosemide 40 MG/4 ML Vial IV ×2 (10:30→16:59)
[2017-07-01] MEDS: Lisinopril 20 MG Tablet PO (10:31)
[2017-07-01] MEDS: Enoxaparin 40 MG/0.4 ML Syringe SC (10:31)
[2017-07-01] MEDS: Venlafaxine HCl 75 MG Tablet PO ×2 (10:31→21:39)
--- NOTE | 2017-07-01 13:58 | CASEMGMT ---
According to [facility] website, the following are in-network tertiary facilities: [facility], [place], [facility], [place], [facility], [facility], [facility], [place], [facility], and . Greg HAMPTON CM
[2017-07-01] MEDS: Clopidogrel Bisulfate 300 MG Tablet PO (15:00)
[2017-07-01] MEDS: Aspirin E.C. 325 MG Tablet PO (15:00)
[2017-07-01] MEDS: Atorvastatin Calcium 40 MG Tablet PO (21:39)
[2017-07-01] MEDS: 0.9% NaCl Peripheral Flush Adult/Peds IV (21:39)
[2017-07-02] VITALS (14 sets, daily range): BP systolic 116–140; BP diastolic 64–76; PULSE 62–74; RESP 16–18; TEMP 36.1–37.1; O2SAT 92–98
[2017-07-02 05:09] LABS: Absolute Lymphocyte Count 2.79 X10^3/ul (0.83-4.51); Absolute Neutrophil Count 5.4 X10^3/uL (2.0-7.7); Basophil# 0.08 X10^3/uL; Basophil% 0.8 % (0-1); Eosinophil# 0.49 X10^3/uL; Eosinophils% 5.1 % (0-5); Hemoglobin 13.2 g/dl (12.0-15.0); Lymphocyte # 2.79 X10^3/ul (4.0); Lymphocyte % 29.2 % (19-41); Mean Corpuscular Hgb 29.5 pg (27.0-32.0); Mean Corpuscular Volume 89.3 fL (81-99); Mean Platelet Vol. 9.7 fl (6.2-12.0); Monocyte# 0.72 X10^3/uL; Monocyte% 7.5 % (0-10); Neutrophil # 5.44 X10^3/uL (2.7-7.7); Neutrophil % 57.2 % (47-70); Platelet Count 313 K/mm3 (150-450); RBC Distribution Width SD 45.4 fl (35.1-43.9); Red Blood Count 4.48 M/mm3 (4.2-5.4); White Blood Count 9.5 K/mm3 (4.4-11.0)
[2017-07-02 05:12] LABS: POSITIVE COUNT NO; POSITIVE DIFFERENTIAL NO; POSITIVE MORPHOLOGY NO
[2017-07-02 05:18] LABS: Partial Thromboplast Time 29.1 Seconds (24.1-36.2); Prothrombin Time (Protime)PT. 13.2 SECONDS (11.7-14.9)
[2017-07-02 05:24] LABS: Anion Gap 12 (5-15); BUN 15 mg/dL (7-18); BUN/Creat Ratio 20.1 RATIO (10-20); Calcium,Total 9.3 mg/dL (8.5-10.1); Chloride 103 mmol/L (98-107); Creatinine, Serum 0.75 mg/dL (0.55-1.02); EST Glomerular Filtration Rate 83 mL/min (>60); Est Glom Filt Rate - Afr Amer 101 mL/min (>60); Estimated Creatinine Clearance 74.66 ml/min; Glucose 102 mg/dL (74-106); Potassium 3.5 mmol/L (3.5-5.1); Sodium Level 141 mmol/L (136-145)
--- NOTE | 2017-07-02 05:55 | EKG12_ITS ---
Test Reason : AM EKG Blood Pressure : / mmHG Vent. Rate : 065 BPM Atrial Rate : 065 BPM P-R Int : 128 ms QRS Dur : 082 ms QT Int : 416 ms P-R-T Axes : 004 -08 013 degrees QTc Int : 432 ms Normal sinus rhythm Low voltage QRS Borderline ECG Confirmed by RONALD MÁRQUEZ, CARISSA ([id number]), associate editor ARABELLA MCNALLY ([id number] on 07/05/2017 1:36:11 PM Referred By: Confirmed By:CARISSA CARDENAS MD
[2017-07-02] MEDS: Aspirin E.C. 81 MG Tablet PO (06:08)
[2017-07-02] MEDS: Clopidogrel Bisulfate 75 MG Tablet PO (06:08)
[2017-07-02] MEDS: Lisinopril 20 MG Tablet PO (06:08)
--- NOTE | 2017-07-02 07:44 | PN_ITS ---
Patient Problems: Active and Suspected Problems Shortness of breath (Acute) Chest pain (Acute) Pulmonary edema (Acute) Subjective: Chief complaint: Follow-up after admission for acute probably diastolic CHF/ pulmonary edema with hypoxia. Patient seen and examined. No acute events overnight. Shortness of breath significantly improved, she has been of oxygen. She has no more chest pressure or pain. All over, she is feeling better. Vital signs are stable, pulse ox is 94% on room air. - Physical Exam General: Alert, Oriented x3, Cooperative, No apparent distress HEENT: Atraumatic, PERRLA, EOMI Oral: Moist Mucosa, No Gingival or Mucosal Lesions/ Ulcerations Neck: Supple, No JVD, Negative Carotid Bruits, Trachea Midline, Thyroid Normal Size and Texture Lungs: No rhonchi, No wheeze, Diminished, - - Decreased breath sounds at the bases, very faint bilateral basilar crackles. Cardiovascular: Regular rate, Regular Rhythm, Normal S1, Normal S2, No murmurs Abdomen: Bowel Sounds Present, Soft, Non Tender, Non-Distended, No Hepato- splenomegaly Extremities: No clubbing, No cyanosis, No edema Skin: No rashes, No breakdown Lymphatic: No Cervical, Supraclavicular, or Inguinal Adenopathy Neurological: Cranial nerves II-XII grossly intact, Motor Exam 5/5 strength throughout Psych/Mental Status: Normal Affect, Appropriate, Alert and oriented to time, place, person, mood and affect Vital Signs Temp Pulse Resp BP Pulse Ox 98.7 F 68 16 116/71 94 07/02/17 04:55 07/02/17 04:55 07/02/17 04:55 07/02/17 04:55 07/02/17 04:55 Oxygen Flow Rate 2 Oxygen Delivery Method Room Air Weight: 224 lb 6.889 oz Body Mass Index (BMI) 36.2 Intake and Output for Last 24 Hours 06/30/17 07/01/17 07/02/17 23:59 23:59 23:59 Intake Total 593 / 593 240 / 240 Output Total 1650 / 1650 Balance 593 / 593 -1410 / -1410 Microbiology Past 72 Hours 07/01/17 11:10 Respiratory Panel (PCR) - Final Mucosa - Nasopharyngeal Laboratory Tests Past 24 Hrs 07/01/17 07/01/17 07/01/17 10:10 14:25 20:41 WBC RBC Hgb Hct MCV MCH MCHC RDW RDW Differential Plt Count MPV Immature Gran % (Auto) Neut % (Auto) Lymph % (Auto) [place] % (Auto) Eos % (Auto) Baso % (Auto) Absolute Neuts (auto) Absolute Lymphs (auto) Total Counted PT INR APTT Sodium Potassium Chloride Carbon Dioxide Anion Gap BUN Creatinine Estim Creat Clear Calc Est GFR (MDRD) Af Amer Est GFR (MDRD) Non-Af BUN/Creatinine Ratio Glucose Calcium Troponin I < 0.02 < 0.02 < 0.02 07/02/17 07/02/17 07/02/17 05:00 05:00 05:00 WBC 9.5 RBC 4.48 Hgb 13.2 Hct 40.0 MCV 89.3 MCH 29.5 MCHC 33.0 RDW 14.0 RDW Differential 45.4 H Plt Count 313 MPV 9.7 Immature Gran % (Auto) 0.200 Neut % (Auto) 57.2 Lymph % (Auto) 29.2 [place] % (Auto) 7.5 Eos % (Auto) 5.1 H Baso % (Auto) 0.8 Absolute Neuts (auto) 5.4 Absolute Lymphs (auto) 2.79 Total Counted Not Reportable PT 13.2 INR 1.0 APTT 29.1 Sodium 141 Potassium 3.5 Chloride 103 Carbon Dioxide 26.0 Anion Gap 12 BUN 15 Creatinine 0.75 Estim Creat Clear Calc 74.66 Est GFR (MDRD) Af Amer 101 Est GFR (MDRD) Non-Af 83 BUN/Creatinine Ratio 20.1 H Glucose 102 Calcium 9.3 Troponin I Assessment/Plan Active and Suspected Problems Shortness of breath (Acute) Chest pain (Acute) Pulmonary edema (Acute) This is a 61 years old female patient presented to the emergency room because of shortness of breath and orthopnea, found to have acute onset congestive heart failure as well as hypoxia. #1 acute probably diastolic congestive heart failure: She is on IV Lasix, started on lisinopril yesterday. Her weight decreased by 7 pounds, symptoms significantly improved. Vital signs are stable, she has been off oxygen with normal pulse ox on room air. Troponin is negative ?4. 2D echocardiogram revealed ejection fraction of 65%, stage II diastolic dysfunction and RVSP of 28. Cardiology on the case. Plan: Continue same treatment, will discuss with cardiology about the need for cardiac catheterization. #2 Acute hypoxic aspirate insufficiency: It is secondary to above. Today, patient symptoms improved, she has been of oxygen. Also, she is a chronic smoker and underlying COPD cannot be ruled out. She is on albuterol as needed. Pulse ox is 94% on room air. #3 hypertension: Blood pressure stable, continue lisinopril. #4 obstructive sleep apnea: CPAP at home, that will be continued, 2D echocardiogram reviewed as above. #5 depression: Continue Effexor and Wellbutrin. #6 suspected COPD: Patient is chronic smoker, more than 30 years of smoking. Never had a lung function test and never been diagnosed with COPD officially. Continue albuterol as needed as above. #7 DVT prophylaxis: Subcu Lovenox. This note was generated with [facility] dictation software. It may contain incorrect words, spelling, and punctuation that were not noted in checking the note before signing.
[2017-07-02] MEDS: DiphenhydrAMINE 25 MG Capsule 50 MG PO (09:23)
[2017-07-02] MEDS: Venlafaxine HCl 75 MG Tablet PO (09:23)
[2017-07-02] MEDS: 0.9% Normal Saline 1,000 ML 15 ML IV (09:23)
[2017-07-02] MEDS: 0.9% NaCl Peripheral Flush Adult/Peds IV (09:25)
[2017-07-02] MEDS: Acetaminophen 325 MG Tablet 650 MG PO (09:41)
[2017-07-02 12:16] LABS: Blood Gas Specimen Type VEN; VBG BASE EXCESS 6 mmol/L (-1.0-3.5); VBG Bicarbonate 30 mmol/L (22-26); VBG Oxygen Content 31 mmol/L (23-33); VBG PO2 35 mmHg (25-40); VBG SO2 69 % (50-70); VBG pCO2 43.4 mmHg (41-51); VBG pH 7.45 (7.32-7.42)
[2017-07-02 12:16] LABS: Base Excess -3 mmol/L (-2 to +2); Bicarbonate 23.6 mmol/L (22-26); Blood Gas Specimen Type ART; PO2 62 mmHG (75-100); SO2 89 % (95-99); Total Carbon Dioxide 25 mmol/L; pCO2 45.5 mmHg (35-45); pH 7.32 (7.35-7.45)
[2017-07-02 12:16] LABS: Blood Gas Specimen Type VEN; VBG BASE EXCESS 4 mmol/L (-1.0-3.5); VBG Bicarbonate 28 mmol/L (22-26); VBG Oxygen Content 30 mmol/L (23-33); VBG PO2 33 mmHg (25-40); VBG SO2 66 % (50-70); VBG pCO2 43.1 mmHg (41-51); VBG pH 7.43 (7.32-7.42)
--- NOTE | 2017-07-02 12:31 | CL.D_ITS ---
Patient Name: LATOYA HARGROVE Study Date: 07/02/2017 Performing: Fili Johnson MD Ht: 66.92 inches 170 cm : 1955 Wt: 224.87 lbs 102 kg Age: 61 Gender: female BSA: 2.12 PROCEDURE(S) PERFORMED TM08-BBI/LHC/COR/LV CLINICAL PROFILE AND INDICATIONS INDICATIONS: Unstable Angina Stress/Imaging Stress/Image Study Performed: No Angina Classification Anginal Classification w/in 2 Weeks: CCS III CAD Presentations: Other: new onset congestive heart failure, dyspnea on exertion. Comorbidities/Risk Factors: Current/Recent Smoker (< 1year) Current/Recent Smoker (< 1year) Hypertension Dyslipidemia CONCLUSIONS Normal LV size, wall motion,and systolic function Non obstructive coronary arteries Cardiac output - Preserved The patient has pulmonary hypertension which is mild. Mitral Valve Insufficiency Mild RECOMMENDATIONS Risk factor modification ASA Indefinitely d/c plavix; pulmonary consult for COPD. May consider ROBER for MR if symptoms persist. Mynx device successfully deployed in RFA. DESCRIPTION OF PROCEDURE The patient arrived to the procedure lab. The risks and benefits of the procedure as well as a full d escription of our services here and current unavailability of surgical backup were fully explained to the patient and/or their significant other prior to the catheterization. The Timeout was completed, verifying the correct patient and procedure. The patient's procedural site was prepped and draped in the usual fashion. Local anesthetic was given subcutaneously to right groin region with Lidocaine 2%. Using a modified Seldinger technique, arterial access was obtained via the right femoral artery, a 4 Fr sheath was inserted Venous access was obtained via the right femoral vein, a 7Fr sheath was insert ed. A 7Fr thermal dilution catheter was inserted and right heart pressures were recorded, it was then advanced to PA position for cardiac outputs. Thermal dilution cardiac outputs were then recorded. O2 saturations were then obtained. The Thermal dilution catheter was then removed. Left Ventriculograph y was performed in RECINOS projection using a 4 Fr. Pigtail catheter. LV to AO pullback pressures were th en recorded. Left Coronary Artery selective angiography was performed in multiple views using a 4 Fr. JL5 catheter. Right Coronary Artery selective angiography was then performed in multiple views using a 4 Fr. 3DRC catheter.The arterial sheath was pulled and a Mynx closure device was deployed for hemo stasis. The venous sheath was then pulled and manual compression applied until hemostasis achieved CORONARY ANGIOGRAPHY DOMINANCE: Right Dominant LEFT HEART ASSESSMENT Normal LV wall motion Normal Left Ventricular systolic function Elevated Left Ventricular End Diastolic Pressure RIGHT HEART ASSESSMENT Thermal CO: 5.56 Thermal CI: 2.62 Uri CO: 7.14 Uri CI: 3.37 PW: 04/03 9 PA: 37/9 24 RV: 34/0 9 RA: 11/25 4 PVR: 216 SVR: 1165 Pulmonary Hypertension Right Heart pressures - elevated LEFT MAIN: Angiographically normal LEFT ANTERIOR DECENDING ARTERY: MID LAD: 40 % Stenosis RIGHT CORONARY ARTERY: Angiographically normal RT PDA: Proximal - Angiographically normal COMPLICATIONS No Complications PROCEDURE MEDICATIONS Oxygen: 2 L/min via nasal cannula SUMMARY OF HEMODYNAMIC DATA Time AIR REST ECG 11:38:07 RA 11/25 (4) SV 11:56:27 RV 34/0, 9 11:56:37 PW 04/03 (9) PV 11:57:05 PA 37/ (24) PA 11:57:14 LV 129/-15, 10 12:01:24 LV 134/-15, 14 12:01:32 LV 129/-14, 14 12:02:00 PW 19/20 (15) 12:02:00 LV 134/-16, 12 12:02:33 RV 37/0, 10 12:02:33 LV 133/-16, 16 12:04:06 LVp 131/-18, 14 12:04:11 AOp 133/67 (95) 12:04:16 AO 110/64 (85) SA 12:05:37 Type SV CO (l/m) CI (l/m/ HR Time AIR REST Thermal 84.20 5.56 2.62 66 11:38:07 Uri 108.20 7.14 3.37 66 11:38:07 Label % O2 Pres/Loc Time AIR REST AO 89 PV 12:09:43 PA 67 PA 12:09:57 Signed By Fili Johnson MD On 07/02/2017 12:30:38 Fili Johnson MD
--- NOTE | 2017-07-02 13:15 | CASEMGMT ---
Face to Face with patient for initial transition planning/care coordination assessment. MEMO RAMIRES introduced self and role at [facility], pt voices understanding and consents to assessment at this time. Pt lying in bed in no distress at this time. Pt A/O x4 at this time and answers all questions appropriately at this time. Care providers, pharmacy, and demographics verified. See attached link. Pt voices no further concerns/needs at this time. Advised pt to ask for CM if any further questions/concerns/needs arise, voices understanding. PLAN: [place] [facility]
--- NOTE | 2017-07-02 15:21 | DCINST_ITS ---
- Discharge Diagnoses Current Active Problems: Current Active and Chronic Problems Shortness of breath (Acute) Chest pain (Acute) Pulmonary edema (Acute) Obstructive sleep apnea (Chronic) Depression (Chronic) Hypertension (Chronic) You will use the following diet at home:: Cardiac Your food should be the consistency of: Regular Discharge Activity: Return to Normal Activity Weight Bearing Status: Full weight bearing Call your doctor if you observe: Fever of 101 or Higher, Shortness of breath, Dizziness, Fainting spells, Prolonged hiccoughing, Increased palpitations ( irregular heartbeat), Uncontrolled pain Instructions: Discharge Instructions: COPD Additional Instructions: follow up with you pumonologist in 3-4 weeks. Allergies/Adverse Reactions: Allergies aspirin [From Percodan] Allergy (Verified 07/01/17 06:12) Anaphylaxis codeine Allergy (Verified 07/01/17 06:12) Other HEADACHE oxycodone [From Percodan] Allergy (Verified 07/01/17 06:12) Anaphylaxis Medications to take at Discharge Atenolol [Tenormin (beta monalisa)] 25 mg PO DAILY 07/01/17 Bupropion HCl [Wellbutrin Xl] 150 mg PO DAILY 07/01/17 Venlafaxine HCl [Effexor] 75 mg PO BID 07/01/17 Albuterol IH (ProAir) [Proair Hfa (SP)Vent Pts] 2 puff INHALATION Q4H PRN PRN # 2 inhaler 07/02/17 Fluticasone/Salmeterol [Advair 100/50 Diskus] 1 puff INHALATION BID #2 inhaler 07/02/17 Furosemide [Lasix] 40 mg PO DAILY #30 tab 07/02/17 The following prescriptions were given: Albuterol IH (ProAir) [Proair Hfa (SP)Vent Pts] 2 puff INHALATION Q4H PRN PRN # 2 inhaler PRN Reason: SOB, Wheezing. Furosemide [Lasix] 40 mg PO DAILY #30 tab Fluticasone/Salmeterol [Advair 100/50 Diskus] 1 puff INHALATION BID #2 inhaler Primary Care Physician: Arturo Brush,Out of [Primary Care Provider] - Please follow up with your Primary Care Physician in: 2 weeks.
[2017-07-02] MEDS: Furosemide 40 MG Tablet PO (17:01)
--- NOTE | 2017-07-03 10:23 | PCM.DC.SUM ---
Discharge Date and Diagnosis Date of Admission: 07/01/17 Date of Discharge: 07/02/17 - Primary Discharge Diagnosis #1 probable acute diastolic CHF. #2 mild acute exacerbation of suspected COPD. #3 acute hypoxic respiratory insufficiency. - Secondary Discharge Diagnosis Chronic Problems Obstructive sleep apnea (Chronic) Depression (Chronic) Hypertension (Chronic) Hospital Course and Treatment Imaging Results: Clinical Impression(s) from Imaging Studies Chest X-Ray 07/01/17 06:09 IMPRESSION: Moderate cardiomegaly with pulmonary vascular congestion and interstitial edema consistent with early CHF Electronically Signed: Sen Reagan MD, FACR at 7:47 EST , Service support , Dr. Johnson, cardiology. Operations: None Procedures: 2-D Echocardiogram, Cardiac catheterization, EKG Summary of Care Provided: The patient is a 61 year old F admitted because of shortness of breath, orthopnea and she was found to have probable acute diastolic congestive heart failure that was complicated by acute hypoxic respiratory insufficiency. On admission, her clinical picture was typical for acute congestive heart failure based on symptoms of shortness of breath, orthopnea, bilateral basal crackles, chest x-ray findings as well as elevated BNP. Patient is a big time smoker but never been diagnosed officially with COPD. She does have history of obstructive sleep apnea and she has been on CPAP at home. She was treated with IV Lasix for diuresis and her symptoms did improve significantly and she was able to come off oxygen after diuresis. She underwent cardiac catheterization that revealed no evidence of significant coronary artery disease that need or require intervention until ejection fraction were normal. A 2D echocardiogram revealed ejection fraction of 65%, stage II diastolic dysfunction and RVSP of 28. Her symptoms of shortness of breath, orthopnea and hypoxia attributed to both probable acute CHF as well as mild acute exacerbation of suspected COPD. She was given on the albuterol as needed for COPD but her symptoms improved significantly with Lasix alone. Her vital signs remained stable and she was able to come off oxygen and pulse ox on discharge was 94% on room air. She remained afebrile, blood pressure and heart rate are stable. Her routine blood work was unremarkable. Her EKG revealed no evidence of acute ischemic changes, revealed low voltage QRS. Troponin was negative ?3. Patient discharged home in a stable medical condition, discharged on Lasix 40 mg p.o. 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 Discharge Activity: Return to Normal Activity Weight Bearing Status: Full weight bearing Call your doctor if you observe: Fever of 101 or Higher, Shortness of breath, Dizziness, Fainting spells, Prolonged hiccoughing, Increased palpitations (irregular heartbeat), Uncontrolled pain Home Medications: Medications to take at Discharge Atenolol [Tenormin (beta monalisa)] 25 mg PO DAILY 07/01/17 Bupropion HCl [Wellbutrin Xl] 150 mg PO DAILY 07/01/17 Venlafaxine HCl [Effexor] 75 mg PO BID 07/01/17 Albuterol IH (ProAir) [Proair Hfa (SP)Vent Pts] 2 puff INHALATION Q4H PRN PRN #2 inhaler 07/02/17 Fluticasone/Salmeterol [Advair 100/50 Diskus] 1 puff INHALATION BID #2 inhaler 07/02/17 Furosemide [Lasix] 40 mg PO DAILY #30 tab 07/02/17 Following Prescrptions Were Given to Patient: Albuterol IH (ProAir) [Proair Hfa (SP)Vent Pts] 2 puff INHALATION Q4H PRN PRN #2 inhaler PRN Reason: SOB, Wheezing. Furosemide [Lasix] 40 mg PO DAILY #30 tab Fluticasone/Salmeterol [Advair 100/50 Diskus] 1 puff INHALATION BID #2 inhaler Primary Care Physician: Arturo Brush,Out of [Primary Care Provider] - Please follow up with your Primary Care Physician in: 2 weeks. Patient Instructions: Discharge Instructions: COPD Disposition: Home Minutes spent on discharge:: 32 Patient Condition:: Stable Meaningful Use Info Meaningful Use Diagnoses (Choose all that apply): CHF - CHF JEREMIAH/ARB ordered at discharge?: No Reason JEREMIAH/ARB not ordered?: Allergy - Not medically indicated. Ejection fraction is normal Documented LVEF (%): 65 Code Visit Inpatient E&M: 61855 Disch Hosp
--- NOTE | 2017-07-03 10:31 | DS.PCM_ITS ---
Discharge Date and Diagnosis Date of Admission: 07/01/17 Date of Discharge: 07/02/17 - Primary Discharge Diagnosis #1 probable acute diastolic CHF. #2 mild acute exacerbation of suspected COPD. #3 acute hypoxic respiratory insufficiency. - Secondary Discharge Diagnosis Chronic Problems Obstructive sleep apnea (Chronic) Depression (Chronic) Hypertension (Chronic) Hospital Course and Treatment Imaging Results: Clinical Impression(s) from Imaging Studies Chest X-Ray 07/01/17 06:09 IMPRESSION: Moderate cardiomegaly with pulmonary vascular congestion and interstitial edema consistent with early CHF Electronically Signed: Sen Reagan MD, FACR at 7:47 EST , Service support , Dr. Johnson, cardiology. Operations: None Procedures: 2-D Echocardiogram, Cardiac catheterization, EKG Summary of Care Provided: The patient is a 61 year old F admitted because of shortness of breath, orthopnea and she was found to have probable acute diastolic congestive heart failure that was complicated by acute hypoxic respiratory insufficiency. On admission, her clinical picture was typical for acute congestive heart failure based on symptoms of shortness of breath, orthopnea, bilateral basal crackles, chest x-ray findings as well as elevated BNP. Patient is a big time smoker but never been diagnosed officially with COPD. She does have history of obstructive sleep apnea and she has been on CPAP at home. She was treated with IV Lasix for diuresis and her symptoms did improve significantly and she was able to come off oxygen after diuresis. She underwent cardiac catheterization that revealed no evidence of significant coronary artery disease that need or require intervention until ejection fraction were normal. A 2D echocardiogram revealed ejection fraction of 65%, stage II diastolic dysfunction and RVSP of 28. Her symptoms of shortness of breath, orthopnea and hypoxia attributed to both probable acute CHF as well as mild acute exacerbation of suspected COPD. She was given on the albuterol as needed for COPD but her symptoms improved significantly with Lasix alone. Her vital signs remained stable and she was able to come off oxygen and pulse ox on discharge was 94% on room air. She remained afebrile, blood pressure and heart rate are stable. Her routine blood work was unremarkable. Her EKG revealed no evidence of acute ischemic changes, revealed low voltage QRS. Troponin was negative ?3. Patient discharged home in a stable medical condition, discharged on Lasix 40 mg p.o. 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 Discharge Activity: Return to Normal Activity Weight Bearing Status: Full weight bearing Call your doctor if you observe: Fever of 101 or Higher, Shortness of breath, Dizziness, Fainting spells, Prolonged hiccoughing, Increased palpitations ( irregular heartbeat), Uncontrolled pain Home Medications: Medications to take at Discharge Atenolol [Tenormin (beta monalisa)] 25 mg PO DAILY 07/01/17 Bupropion HCl [Wellbutrin Xl] 150 mg PO DAILY 07/01/17 Venlafaxine HCl [Effexor] 75 mg PO BID 07/01/17 Albuterol IH (ProAir) [Proair Hfa (SP)Vent Pts] 2 puff INHALATION Q4H PRN PRN # 2 inhaler 07/02/17 Fluticasone/Salmeterol [Advair 100/50 Diskus] 1 puff INHALATION BID #2 inhaler 07/02/17 Furosemide [Lasix] 40 mg PO DAILY #30 tab 07/02/17 Following Prescrptions Were Given to Patient: Albuterol IH (ProAir) [Proair Hfa (SP)Vent Pts] 2 puff INHALATION Q4H PRN PRN # 2 inhaler PRN Reason: SOB, Wheezing. Furosemide [Lasix] 40 mg PO DAILY #30 tab Fluticasone/Salmeterol [Advair 100/50 Diskus] 1 puff INHALATION BID #2 inhaler Primary Care Physician: Arturo Brush,Out of [Primary Care Provider] - Please follow up with your Primary Care Physician in: 2 weeks. Patient Instructions: Discharge Instructions: COPD Disposition: Home Minutes spent on discharge:: 32 Patient Condition:: Stable Meaningful Use Info Meaningful Use Diagnoses (Choose all that apply): CHF - CHF JEREMIAH/ARB ordered at discharge?: No Reason JEREMIAH/ARB not ordered?: Allergy - Not medically indicated. Ejection fraction is normal Documented LVEF (%): 65 Code Visit Inpatient E&M: 12638 Disch Hosp
== END 2017-07-02 17:35 | disposition home or self-care (01) | DRG 287 ==
LOC: ED 07:06 → PCU 07:31
PROVIDERS: Internal Medicine Cardiovascular Disease; Admitting Provider Hospitalist; Emergency Provider Emergency Medicine; Visit Provider Hospitalist
DX: I50.31 Acute diastolic (congestive) heart failure (principal); I27.20 Pulmonary hypertension, unspecified; J44.1 Chronic obstructive pulmonary disease with (acute) exacerbation; E78.5 Hyperlipidemia, unspecified; F17.200 Nicotine dependence, unspecified, uncomplicated; G47.33 Obstructive sleep apnea (adult) (pediatric); F32.9 Major depressive disorder, single episode, unspecified; I10 Essential (primary) hypertension; R06.89 Other abnormalities of breathing; Z82.49 Family history of ischemic heart disease and other diseases of the circulatory system; I34.0 Nonrheumatic mitral (valve) insufficiency
CPT/HCPCS: 36415; 71045; 80048; 82803; 83880; 84443; 84484; 85025; 85610; 85730; 87633; 93005; 93306; 93460; 94002; 94640; 97161; 99282; 99406; C1760; J7030; Q9957; Q9967; A4216; C1751; C1894; J1940